=== PATIENT | female | born 1960 | race Caucasian/White ===

== ENCOUNTER → 2018-10-14 | Outpatient (CLI) | payer OTHER ==
[~2018-10-14] MED LIST: ARIP15 PO; ATOR10 PO; CYCL10; CYCL10 PO; DEXL60CA3 PO; HYDACE5; HYDMOR4 PO; HYDR1TAB94 PO; LOSHYD100 PO; METH10 PO; OLME40 PO; OXYACE5T PO; OXYC5; PROM25 PO; RABE20 PO; RANI150 PO; SERT100 PO; TRAZ50; UNK BP MED; [UNRECOGNIZED DRUG - REMARK]
== END ==
LOC: LAB EV 09:15 → LAB SHORT 09:15
DX: G89.4 Chronic pain syndrome (principal)
CPT/HCPCS: G0480

== ENCOUNTER 2019-02-08 10:29 | Day surgery (SDC) | payer BC, OTHER ==
[~2019-02-08] VITALS: Ht 162.6 cm; Wt 77.0 kg
[2019-02-08] MEDS ORDERED: MORP15ER (11:37)
--- NOTE | 2019-02-08 12:47 | NUR ---
02/08/19 1247 Nargis Flores O2 10L VIA POM MASK
--- NOTE | 2019-02-08 13:26 | NUR ---
02/08/[address] AWARE OF BP READINGS IN RECOVERY. BP CONSISTENT WITH PREOP AND OP MEASUREMENTS. PT STATES SHE GETS HEADACHES AND USUALLY TAKES HER PAIN MEDS TO ALLEVIATE THEM. PT TOLERATING LIQUIDS WELL. PT SBA TO CAR, STEADY ON FEET.
== END 2019-02-08 13:22 | disposition home or self-care (01) ==
LOC: ORSCSDS 10:29
PROVIDERS: Internal Medicine Gastroenterology
PROC: 0DBL8ZX Excision of Transverse Colon, Via Natural or Artificial Opening Endoscopic, Diagnostic (ICD-10-PCS; principal; 2019-02-08 12:15)
PROC: 0D758ZZ Dilation of Esophagus, Via Natural or Artificial Opening Endoscopic (ICD-10-PCS; principal; 2019-02-08 12:15)
DX: R13.10 Dysphagia, unspecified (principal); K22.2 Esophageal obstruction; K22.10 Ulcer of esophagus without bleeding; K44.9 Diaphragmatic hernia without obstruction or gangrene; Z12.11 Encounter for screening for malignant neoplasm of colon; D12.3 Benign neoplasm of transverse colon; K57.30 Diverticulosis of large intestine without perforation or abscess without bleeding; K64.8 Other hemorrhoids; Z86.010 Personal history of colon polyps; F17.210 Nicotine dependence, cigarettes, uncomplicated; I10 Essential (primary) hypertension; J45.909 Unspecified asthma, uncomplicated; E78.5 Hyperlipidemia, unspecified; M79.7 Fibromyalgia; F41.8 Other specified anxiety disorders; Z79.899 Other long term (current) drug therapy
CPT/HCPCS: 88305; J2704; J7120

== ENCOUNTER 2020-03-26 08:02 | Emergency (ER) | payer BC ==
[~2020-03-26] VITALS: Ht 162.6 cm; Wt 86.2 kg
[~2020-03-26 08:02] MED LIST changes: +MORP15ER
[2020-03-26] MEDS ORDERED: METOPROLOL SUCC25 MG PO (08:25)
[2020-03-26] MEDS ORDERED: HYDCHL25 PO (08:25)
[2020-03-26] MEDS ORDERED: Cymbalta20 MG PO (08:25)
[2020-03-26 09:43] LABS: BASOPHILS ABSOLUTE AUTO 0.04 K/mm3 (0.00-0.23); BASOPHILS PERCENT AUTO 0 % (0-2); EOSINOPHILS PERCENT AUTO 2 % (0-6); Hematocrit 45.6 % (33.0-51.0); Hemoglobin 14.6 g/dL (11.5-16.0); IMMATURE GRAN ABSOLUTE AUTO 0.04 K/mm3 (0.00-0.10); IMMATURE GRAN PERCENT AUTO 0 % (0-1); LYMPHOCYTES ABSOLUTE AUTO 1.97 K/mm3 (0.84-5.20); LYMPHOCYTES PERCENT AUTO 22 % (21-46); MONOCYTES ABSOLUTE AUTO 0.48 K/mm3 (0.16-1.47); MONOCYTES PERCENT AUTO 5 % (4-13); Mean Corpuscular HGB 28.7 pg (26.0-34.0); Mean Corpuscular Volume 90 fL (80-100); NEUTROPHILS ABSOLUTE AUTO 6.26 K/mm3 (1.96-9.15); NEUTROPHILS PERCENT AUTO 70 % (41-73); Platelet Count 346 K/mm3 (150-400); RDW Coefficient Variation 12.8 % (11.7-14.2); RDW Standard Deviation 42.1 fL (35.1-46.3); Red Blood Cell Count 5.09 M/mm3 (3.80-5.20); White Blood Cell Count 8.99 K/mm3 (4.00-11.30)
[2020-03-26 09:53] LABS: Alanine Aminotransfer (ALT/SGP 15 U/L (12-78); Albumin, Blood 3.3 g/dL (3.4-5.0); Albumin/Globulin Ratio 0.8 (0.8-1.8); Alk Phos 122 U/L (50-136); Anion Gap 7 mmol/L (6-16); Aspartate Aminotrans (AST/SGOT 12 U/L (12-37); Bilirubin, Total 0.2 mg/dL (0.1-1.0); Blood Urea Nitrogen 13 mg/dL (8-24); Bun/Creatinine Ratio 20.8 (12.0-20.0); CO2, Blood 28 mmol/L (21-32); Chloride, Blood 105 mmol/L (98-108); Creatinine, Blood 0.63 mg/dL (0.40-1.00); Globulin, Blood 4.2 g/dL (2.2-4.0); Glomerular Filtration Rate >60 (60-); Glucose, Blood 104 mg/dL (70-99); Potassium, Blood 3.7 mmol/L (3.5-5.5); Sodium, Blood 140 mmol/L (136-145); Total Protein, Blood 7.5 g/dL (6.4-8.2)
[2020-03-26] MEDS ORDERED: Percocet 5-3251 EACH PO ×2 (11:51→12:27)
[2020-03-26] MEDS ORDERED: IBUP400 PO ×2 (11:51→12:27)
== END 2020-03-26 12:11 | disposition home or self-care (01) ==
LOC: ER 08:02
PROVIDERS: Emergency Medicine
DX: S22.41XA Multiple fractures of ribs, right side, initial encounter for closed fracture (principal); K80.20 Calculus of gallbladder without cholecystitis without obstruction; I10 Essential (primary) hypertension; F17.210 Nicotine dependence, cigarettes, uncomplicated; Z88.8 Allergy status to other drugs, medicaments and biological substances; Z79.899 Other long term (current) drug therapy; W18.09XA Striking against other object with subsequent fall, initial encounter
CPT/HCPCS: 36415; 71260; 80053; 85025; 93005; 93010; 96374; 96375; 99284-25; J1170; J1885; J2405; Q9967

== ENCOUNTER 2021-03-24 12:04 | Emergency (ER) | payer OTHER ==
[~2021-03-24] VITALS: Ht 160 cm; Wt 90.7 kg
[~2021-03-24 12:04] MED LIST changes: +Cymbalta20 MG PO; +HYDCHL25 PO; +IBUP400 PO; +METOPROLOL SUCC25 MG PO; +Percocet 5-3251 EACH PO
[2021-03-24 14:06] LABS: Influenza A, PCR NEGATIVE (NEGATIVE); Influenza B, PCR NEGATIVE (NEGATIVE); Resp Syncytial Virus, PCR NEGATIVE (NEGATIVE); SARS-Cov-2 (COVID-19) PCR, MMC NEGATIVE (NEGATIVE)
[2021-03-24] MEDS ORDERED: PRED20 PO (14:25)
[2021-03-24] MEDS ORDERED: ALBU90OI INH (14:25)
== END 2021-03-24 14:45 | disposition home or self-care (01) ==
LOC: ER 12:04
PROVIDERS: Physician Assistant
DX: J98.01 Acute bronchospasm (principal); J98.8 Other specified respiratory disorders; Z20.822 Contact with and (suspected) exposure to COVID-19; F17.200 Nicotine dependence, unspecified, uncomplicated
CPT/HCPCS: 0241U; 99283; J7512

== ENCOUNTER 2021-05-28 11:50 | Emergency (ER) | payer OTHER ==
[~2021-05-28] VITALS: Ht 162.6 cm; Wt 86.2 kg
[~2021-05-28 11:50] MED LIST changes: +ALBU90OI INH; +PRED20 PO
[2021-05-28 13:27] LABS: Alanine Aminotransfer (ALT/SGP 25 U/L (12-78); Albumin, Blood 3.3 g/dL (3.4-5.0); Albumin/Globulin Ratio 0.8 (0.8-1.8); Alk Phos 133 U/L (50-136); Anion Gap 6 mmol/L (6-16); Aspartate Aminotrans (AST/SGOT 29 U/L (12-37); Bilirubin, Total 0.6 mg/dL (0.1-1.0); Blood Urea Nitrogen 10 mg/dL (8-24); Bun/Creatinine Ratio 17.6 (12.0-20.0); CO2, Blood 31 mmol/L (21-32); Calcium, Blood 9.1 mg/dL (8.5-10.1); Chloride, Blood 101 mmol/L (98-108); Creatinine, Blood 0.57 mg/dL (0.40-1.00); Globulin, Blood 3.9 g/dL (2.2-4.0); Glomerular Filtration Rate >60 (60-); Glucose, Blood 99 mg/dL (70-99); Sodium, Blood 138 mmol/L (136-145); Total Protein, Blood 7.2 g/dL (6.4-8.2)
[2021-05-28 14:20] LABS: BASOPHILS ABSOLUTE AUTO 0.05 K/mm3 (0.00-0.23); BASOPHILS PERCENT AUTO 1 % (0-2); EOSINOPHILS ABSOLUTE AUTO 0.19 K/mm3 (0.00-0.68); EOSINOPHILS PERCENT AUTO 2 % (0-6); Hematocrit 41.6 % (33.0-51.0); IMMATURE GRAN ABSOLUTE AUTO 0.02 K/mm3 (0.00-0.10); IMMATURE GRAN PERCENT AUTO 0 % (0-1); LYMPHOCYTES ABSOLUTE AUTO 2.33 K/mm3 (0.84-5.20); LYMPHOCYTES PERCENT AUTO 27 % (21-46); MONOCYTES ABSOLUTE AUTO 0.55 K/mm3 (0.16-1.47); MONOCYTES PERCENT AUTO 7 % (4-13); Mean Corpuscular HGB 29.8 pg (26.0-34.0); Mean Corpuscular HGB Conc 33.7 g/dL (31.5-36.5); Mean Corpuscular Volume 89 fL (80-100); Mean Platelet Volume 9.1 fL (9.1-12.4); NEUTROPHILS ABSOLUTE AUTO 5.35 K/mm3 (1.96-9.15); NEUTROPHILS PERCENT AUTO 63 % (41-73); Platelet Count 313 K/mm3 (150-400); RDW Coefficient Variation 12.1 % (11.7-14.2); RDW Standard Deviation 39.3 fL (35.1-46.3); White Blood Cell Count 8.49 K/mm3 (4.00-11.30)
== END 2021-05-28 16:00 | disposition home or self-care (01) ==
LOC: ER 11:50
PROVIDERS: Physician Assistant
DX: R07.9 Chest pain, unspecified (principal); I10 Essential (primary) hypertension; Z79.899 Other long term (current) drug therapy; F17.210 Nicotine dependence, cigarettes, uncomplicated
CPT/HCPCS: 36415; 71046; 80053; 84484; 85025; 93005; 93010

== ENCOUNTER → 2021-06-03 | Outpatient (CLI) | payer OTHER ==
[2021-06-03 14:01] LABS: BASOPHILS ABSOLUTE AUTO 0.03 K/mm3 (0.00-0.23); BASOPHILS PERCENT AUTO 0 % (0-2); EOSINOPHILS ABSOLUTE AUTO 0.08 K/mm3 (0.00-0.68); EOSINOPHILS PERCENT AUTO 1 % (0-6); Hematocrit 38.9 % (33.0-51.0); Hemoglobin 12.9 g/dL (11.5-16.0); IMMATURE GRAN ABSOLUTE AUTO 0.05 K/mm3 (0.00-0.10); IMMATURE GRAN PERCENT AUTO 0 % (0-1); LYMPHOCYTES ABSOLUTE AUTO 2.18 K/mm3 (0.84-5.20); LYMPHOCYTES PERCENT AUTO 19 % (21-46); MONOCYTES ABSOLUTE AUTO 0.81 K/mm3 (0.16-1.47); MONOCYTES PERCENT AUTO 7 % (4-13); Mean Corpuscular HGB 29.7 pg (26.0-34.0); Mean Corpuscular HGB Conc 33.2 g/dL (31.5-36.5); Mean Corpuscular Volume 90 fL (80-100); NEUTROPHILS ABSOLUTE AUTO 8.56 K/mm3 (1.96-9.15); NEUTROPHILS PERCENT AUTO 73 % (41-73); Platelet Count 383 K/mm3 (150-400); RDW Coefficient Variation 12.2 % (11.7-14.2); Red Blood Cell Count 4.34 M/mm3 (3.80-5.20); White Blood Cell Count 11.71 K/mm3 (4.00-11.30)
[2021-06-03 14:17] LABS: Alanine Aminotransfer (ALT/SGP 25 U/L (12-78); Albumin, Blood 2.9 g/dL (3.4-5.0); Albumin/Globulin Ratio 0.8 (0.8-1.8); Alk Phos 141 U/L (40-126); Anion Gap 7 mmol/L (6-16); Aspartate Aminotrans (AST/SGOT 20 U/L (12-37); Bilirubin, Total 0.3 mg/dL (0.1-1.0); Blood Urea Nitrogen 11 mg/dL (8-24); Bun/Creatinine Ratio 15.5 (12.0-20.0); CO2, Blood 31 mmol/L (21-32); Calcium, Blood 8.2 mg/dL (8.5-10.1); Chloride, Blood 100 mmol/L (98-108); Creatinine, Blood 0.71 mg/dL (0.40-1.00); Globulin, Blood 3.6 g/dL (2.2-4.0); Glomerular Filtration Rate >60 (60-); Glucose, Blood 108 mg/dL (70-99); Potassium, Blood 4.6 mmol/L (3.5-5.5); Sodium, Blood 138 mmol/L (136-145); Total Protein, Blood 6.5 g/dL (6.4-8.2)
== END ==
LOC: LAB 13:51 → LAB SHORT 13:51
PROVIDERS: Physician Assistant
DX: R07.9 Chest pain, unspecified (principal)
CPT/HCPCS: 80053; 83690; 84484; 85025

== ENCOUNTER → 2022-08-02 | Outpatient (CLI) | payer OTHER | END | disposition home or self-care (01) | LOC: PLD 15:13 → LAB 15:13 → LAB SHORT 15:13 | DX: K14.0 Glossitis (principal) | CPT/HCPCS: 88305; 88312 ==

== ENCOUNTER 2022-10-29 08:59 | Day surgery (SDC) | payer OTHER ==
[~2022-10-29] VITALS: Ht 162.6 cm; Wt 89.0 kg
[~2022-10-29 08:59] MED LIST changes: +LOSARTAN-HCTZ1 EACH PO; -LOSHYD100 PO; +OXYC10ER PO
[2022-10-29] MEDS ORDERED: AMLODIPINE BESYL5 MG PO (10:07)
[2022-10-29 11:15] VITALS: BP 134/85
== END 2022-10-29 11:10 | disposition home or self-care (01) ==
LOC: ORSCSDS 08:59
PROVIDERS: Surgery
PROC: 0DJ08ZZ Inspection of Upper Intestinal Tract, Via Natural or Artificial Opening Endoscopic (ICD-10-PCS; principal; 2022-10-29 10:30)
PROC: 0DJD8ZZ Inspection of Lower Intestinal Tract, Via Natural or Artificial Opening Endoscopic (ICD-10-PCS; principal; 2022-10-29 10:30)
DX: K20.80 Other esophagitis without bleeding (principal); Z12.11 Encounter for screening for malignant neoplasm of colon; Z86.010 Personal history of colon polyps; F41.9 Anxiety disorder, unspecified; F32.A Depression, unspecified; J45.909 Unspecified asthma, uncomplicated; I10 Essential (primary) hypertension; E78.5 Hyperlipidemia, unspecified; F17.200 Nicotine dependence, unspecified, uncomplicated; Z79.899 Other long term (current) drug therapy
CPT/HCPCS: J2704; J7120

== ENCOUNTER 2022-11-23 07:14 | Inpatient (IN) | payer OTHER ==
[~2022-11-23] VITALS: Ht 162.6 cm; Wt 91.3 kg
[~2022-11-23 07:14] MED LIST changes: +AMLODIPINE BESYL5 MG PO
[2022-11-23 09:35] LABS: BASOPHILS ABSOLUTE AUTO 0.06 K/mm3 (0.00-0.23); BASOPHILS PERCENT AUTO 0 % (0-2); EOSINOPHILS ABSOLUTE AUTO 0.01 K/mm3 (0.00-0.68); EOSINOPHILS PERCENT AUTO 0 % (0-6); Hemoglobin 9.6 g/dL (11.5-16.0); IMMATURE GRAN ABSOLUTE AUTO 0.87 K/mm3 (0.00-0.10); IMMATURE GRAN PERCENT AUTO 3 % (0-1); LYMPHOCYTES ABSOLUTE AUTO 1.62 K/mm3 (0.84-5.20); LYMPHOCYTES PERCENT AUTO 6 % (21-46); MONOCYTES ABSOLUTE AUTO 1.87 K/mm3 (0.16-1.47); MONOCYTES PERCENT AUTO 7 % (4-13); Mean Corpuscular Volume 84 fL (80-100); Mean Platelet Volume 8.7 fL (9.1-12.4); NEUTROPHILS ABSOLUTE AUTO 21.61 K/mm3 (1.96-9.15); NEUTROPHILS PERCENT AUTO 83 % (41-73); NRBC ABSOLUTE 0.02 K/mm3 (0.00-0.02); NRBC Auto 0.1 /100 WBC (0.0-0.2); Platelet Count 635 K/mm3 (150-400); RDW Coefficient Variation 15.1 % (11.7-14.2); RDW Standard Deviation 46.5 fL (35.1-46.3); Red Blood Cell Count 3.56 M/mm3 (3.80-5.20); White Blood Cell Count 26.04 K/mm3 (4.00-11.30)
[2022-11-23 09:57] LABS: Albumin, Blood 2.6 g/dL (3.4-5.0); Albumin/Globulin Ratio 0.6 (0.8-1.8); Bilirubin, Total 0.3 mg/dL (0.1-1.0); Bun/Creatinine Ratio 29.1 (12.0-20.0); Calcium, Blood 8.9 mg/dL (8.5-10.1); Creatinine, Blood 1.17 mg/dL (0.40-1.00); Globulin, Blood 4.6 g/dL (2.2-4.0); Potassium, Blood 3.7 mmol/L (3.5-5.5); Total Protein, Blood 7.2 g/dL (6.4-8.2)
[2022-11-23] MEDS ORDERED: Cyclobenzaprine5 MG PO (10:06)
[2022-11-23] MEDS ORDERED: SPIRONOLACTONE25 MG PO (10:07)
[2022-11-23] MEDS ORDERED: LOSARTAN-HCTZ1 EAC5 PO (10:07)
[2022-11-23] MEDS ORDERED: BUSPIRONE HCL5 M6 PO (10:07)
[2022-11-23] MEDS ORDERED: SIME80CH PO (10:07)
[2022-11-23] MEDS ORDERED: Ventolin/Prove6.7 GM INH (10:07)
[2022-11-23] MEDS ORDERED: PANTOPRAZOLE SO40 M2 PO (10:07)
[2022-11-23] MEDS ORDERED: MIRALAX11914 PO (10:08)
[2022-11-23 13:59] VITALS: BP 137/69
--- NOTE | 2022-11-23 17:07 | NUR ---
ER ADMIT Admitted for sepsis & pneumonia. Patient alert & oriented x4. IV placed in left forearm, IV saline infusing x2 bags. Vitals stable, afebrile. Incontinent/continent of urine. Patient observed to have constant involuntary abnormal postures & twisting movements of body, head and neck. Patient has difficulty maintaing still, reports these involuntary movements have been on-going for about a year and her PCP manages symptoms with flexeril. Plan to administred IV ABX & monitor infection.
[2022-11-23 19:48] VITALS: BP 129/61
[2022-11-24 02:40] VITALS: BP 160/88
--- NOTE | 2022-11-24 04:20 | NUR ---
SHIFT SUMMARY ALERT AND ORIENTED. MAINTAINING OXYGEN SATURATION 100% ON ROOM AIR. NEW ORDER GIVEN FOR TESSLON PEARLES FOR COUGH. EXTRA PYRAMIDAL MOVEMENTS AND COUGH INTERRUPTED PATIENT'S SLEEP FREQUENTLY. UP SBA TO BR. PLEASANT AND COOPERATIVE WITH CARE.
[2022-11-24 05:08] LABS: BASOPHILS ABSOLUTE AUTO 0.04 K/mm3 (0.00-0.23); BASOPHILS PERCENT AUTO 0 % (0-2); EOSINOPHILS ABSOLUTE AUTO 0.01 K/mm3 (0.00-0.68); EOSINOPHILS PERCENT AUTO 0 % (0-6); Hematocrit 29.2 % (33.0-51.0); Hemoglobin 9.3 g/dL (11.5-16.0); IMMATURE GRAN ABSOLUTE AUTO 0.77 K/mm3 (0.00-0.10); IMMATURE GRAN PERCENT AUTO 3 % (0-1); LYMPHOCYTES ABSOLUTE AUTO 2.54 K/mm3 (0.84-5.20); LYMPHOCYTES PERCENT AUTO 11 % (21-46); MONOCYTES ABSOLUTE AUTO 1.49 K/mm3 (0.16-1.47); MONOCYTES PERCENT AUTO 6 % (4-13); Mean Corpuscular HGB 27.2 pg (26.0-34.0); Mean Corpuscular HGB Conc 31.8 g/dL (31.5-36.5); Mean Corpuscular Volume 85 fL (80-100); NEUTROPHILS ABSOLUTE AUTO 18.32 K/mm3 (1.96-9.15); NEUTROPHILS PERCENT AUTO 79 % (41-73); Platelet Count 622 K/mm3 (150-400); RDW Coefficient Variation 15.4 % (11.7-14.2); Red Blood Cell Count 3.42 M/mm3 (3.80-5.20); White Blood Cell Count 23.17 K/mm3 (4.00-11.30)
[2022-11-24 05:32] LABS: Albumin, Blood 2.3 g/dL (3.4-5.0); Albumin/Globulin Ratio 0.5 (0.8-1.8); Bilirubin, Total 0.2 mg/dL (0.1-1.0); Bun/Creatinine Ratio 44.2 (12.0-20.0); Calcium, Blood 8.8 mg/dL (8.5-10.1); Creatinine, Blood 0.66 mg/dL (0.40-1.00); Globulin, Blood 4.3 g/dL (2.2-4.0); Potassium, Blood 3.9 mmol/L (3.5-5.5); Total Protein, Blood 6.6 g/dL (6.4-8.2)
[2022-11-24 07:29] VITALS: BP 141/78
--- NOTE | 2022-11-24 08:00 | NUR ---
Pt has constant movements of all ext, pt reports pain in left shoulder, ice pack provided, a/ox3, but not feeling well, having a hard time participating in discussion, lungs are clear in upper [place], course in lower [place], resp even and unlabored, no r/a this am, has a harsh cough, shallow resp, hrr, no edema noted, ppp +1, cap refill <3sec, vs stable, afebrile, piv site is clear and patent, btx4, abd flat soft nontender, voids without diff, skin c/w/d, maew, baldev, call light in reach. called Dr. Howell for tylenol and something for cough, recieved orders.
[2022-11-24 16:02] VITALS: BP 123/74
--- NOTE | 2022-11-24 19:14 | NUR ---
pt complained of left shoulder pain, states it's some better after tylenol, continues jerking motions, no further changes this shift. call light in reach.
[2022-11-24 22:02] VITALS: BP 125/85
[2022-11-25 03:26] VITALS: BP 153/85
--- NOTE | 2022-11-25 04:40 | NUR ---
SHIFT SUMMARY PATIENT MEDICATED X1 WITH TESSALON PEARLES FOR COUGH, TYLENOL X1 FOR PAIN. KPAD TO LEFT SHOULDER/NECK. PATIENT DID NOT SLEEP WELL AGAIN D/T TARDIVE DYSKINESIA MOVEMENTS. PATIENT VERY FRUSTRATED. UP SBA TO BR. GOOD PO INTAKE. MAINTAINING OXYGEN SATURATION AT 97% ON ROOM AIR. REPORTS BLOOD TINGED SPUTUM WHEN COUGHING. PLEASANT AND COOPERATIVE WITH CARE.
[2022-11-25 05:03] LABS: BASOPHILS ABSOLUTE AUTO 0.05 K/mm3 (0.00-0.23); BASOPHILS PERCENT AUTO 0 % (0-2); EOSINOPHILS ABSOLUTE AUTO 0.09 K/mm3 (0.00-0.68); EOSINOPHILS PERCENT AUTO 1 % (0-6); Hematocrit 30.6 % (33.0-51.0); Hemoglobin 9.7 g/dL (11.5-16.0); IMMATURE GRAN ABSOLUTE AUTO 0.81 K/mm3 (0.00-0.10); IMMATURE GRAN PERCENT AUTO 4 % (0-1); LYMPHOCYTES ABSOLUTE AUTO 2.85 K/mm3 (0.84-5.20); LYMPHOCYTES PERCENT AUTO 15 % (21-46); MONOCYTES ABSOLUTE AUTO 1.12 K/mm3 (0.16-1.47); MONOCYTES PERCENT AUTO 6 % (4-13); Mean Corpuscular HGB 26.6 pg (26.0-34.0); Mean Corpuscular HGB Conc 31.7 g/dL (31.5-36.5); Mean Corpuscular Volume 84 fL (80-100); Mean Platelet Volume 8.9 fL (9.1-12.4); NEUTROPHILS ABSOLUTE AUTO 14.11 K/mm3 (1.96-9.15); NEUTROPHILS PERCENT AUTO 74 % (41-73); NRBC ABSOLUTE 0.02 K/mm3 (0.00-0.02); NRBC Auto 0.1 /100 WBC (0.0-0.2); Platelet Count 631 K/mm3 (150-400); RDW Coefficient Variation 15.1 % (11.7-14.2); RDW Standard Deviation 46.5 fL (35.1-46.3); Red Blood Cell Count 3.64 M/mm3 (3.80-5.20); White Blood Cell Count 19.03 K/mm3 (4.00-11.30)
[2022-11-25 05:37] LABS: Bun/Creatinine Ratio 31.1 (12.0-20.0); Calcium, Blood 8.6 mg/dL (8.5-10.1); Creatinine, Blood 0.51 mg/dL (0.40-1.00); Potassium, Blood 3.8 mmol/L (3.5-5.5)
[2022-11-25 07:17] VITALS: BP 152/81
[2022-11-25 15:06] VITALS: BP 139/78
--- NOTE | 2022-11-25 16:21 | NUR ---
SHIFT SUMMARY PT AxOx4. PLEASANT AND COOPERATIVE WITH CARE. PT RECEIVED IV ABX TODAY. UA SENT FOR CULTURE WITH NEGATIVE RESULTS. PT HAS BEEN COUGHING ON AND OFF T/O THE DAY. MEDICATED PER EMAR. LS CLEAR, DIM BASES. PT REPORTS PAIN IN R SIDE RIBS AND CHRONIC PAIN TO L SHOULDER. MEDICATED PER EMAR. HEAD PAD PROVIDED. PT IS INDEPENDENT IN THE ROOM. ABLE TO MAKE NEEDS KNOWN. PT NOTED TO HAVE SPORATIC INVOLUNTARY MUSCLE MOVEMENT. CURRENT PLAN IS TO COMPLETE IV ABX AND FOLLOW UP OUTPATIENT WITH NEUROLOGY. PT IS CURRENTLY RESTING IN BED WITH CALL LIGHT IN REACH. DENIES ANY NEEDS AT THIS TIME.
[2022-11-25 20:52] VITALS: BP 154/89
--- NOTE | 2022-11-26 04:26 | NUR ---
SHIFT SUMMARY 62 YR F ADMITTED ON 11/23/22 FOR SEPSIS PNA. FULL CODE. NO ACUTE CHANGES THIS SHIFT. PT C/O PAIN IN THE LEFT SHOULDER AND CHEST AREA. MEDICATED W/ TYLENOL PER EMAR. PT IS A&O AND INDEPENDANT IN THE ROOM. SHE IS VERY PLEASANT AND COOPERATIVE WITH CARE. BED IN LOW POSITION AND CALL LIGHT IN REACH.
[2022-11-26 04:50] VITALS: BP 137/73
[2022-11-26 05:31] LABS: BASOPHILS ABSOLUTE AUTO 0.04 K/mm3 (0.00-0.23); BASOPHILS PERCENT AUTO 0 % (0-2); EOSINOPHILS ABSOLUTE AUTO 0.12 K/mm3 (0.00-0.68); EOSINOPHILS PERCENT AUTO 1 % (0-6); Hematocrit 33.2 % (33.0-51.0); Hemoglobin 10.5 g/dL (11.5-16.0); IMMATURE GRAN ABSOLUTE AUTO 0.56 K/mm3 (0.00-0.10); IMMATURE GRAN PERCENT AUTO 3 % (0-1); LYMPHOCYTES ABSOLUTE AUTO 2.35 K/mm3 (0.84-5.20); LYMPHOCYTES PERCENT AUTO 12 % (21-46); MONOCYTES ABSOLUTE AUTO 1.21 K/mm3 (0.16-1.47); MONOCYTES PERCENT AUTO 6 % (4-13); Mean Corpuscular HGB 26.7 pg (26.0-34.0); Mean Corpuscular HGB Conc 31.6 g/dL (31.5-36.5); Mean Corpuscular Volume 85 fL (80-100); NEUTROPHILS ABSOLUTE AUTO 15.95 K/mm3 (1.96-9.15); NEUTROPHILS PERCENT AUTO 79 % (41-73); NRBC ABSOLUTE 0.02 K/mm3 (0.00-0.02); NRBC Auto 0.1 /100 WBC (0.0-0.2); Platelet Count 690 K/mm3 (150-400); RDW Coefficient Variation 15.1 % (11.7-14.2); RDW Standard Deviation 46.4 fL (35.1-46.3); Red Blood Cell Count 3.93 M/mm3 (3.80-5.20); White Blood Cell Count 20.23 K/mm3 (4.00-11.30)
[2022-11-26 06:28] LABS: Albumin, Blood 2.4 g/dL (3.4-5.0); Anion Gap 5 mmol/L (6-16); Blood Urea Nitrogen 12 mg/dL (8-24); CO2, Blood 30 mmol/L (21-32); Calcium, Blood 9.5 mg/dL (8.5-10.1); Chloride, Blood 100 mmol/L (98-108); Creatinine, Blood 0.55 mg/dL (0.40-1.00); Glomerular Filtration Rate 104 (60-); Glucose, Blood 116 mg/dL (70-99); Phosphorus, Blood 4.7 mg/dL (2.5-4.9); Potassium, Blood 4.3 mmol/L (3.5-5.5); Sodium, Blood 135 mmol/L (136-145)
[2022-11-26 08:10] VITALS: BP 140/89
[2022-11-26 16:01] VITALS: BP 147/94
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
[2022-11-26 19:19] VITALS: BP 140/72
--- NOTE | 2022-11-26 20:03 | NUR ---
PT A&OX4 AND COOPERATIVE OF CARE. INDEPENDENT IN ROOM. PT EMOTIONAL AND TEARFUL AT TIMES D/T EVENTS OF HER PAST. FRANKIEROBBIN, WAS CALLED AND WAS ABLE TO SPEND SOME TIME WITH PT. VSS. WBC COUNT ELEVATED FROM PREVIOUS DAY. IV ABX CONTINUED. PT C/O CHRONIC PAIN. MEDIATED PER EMAR AND ICE PACKS PROVIDED. FAMILY AT BEDSIDE FOR SOME TIME TODAY. BED IN LOWEST POSITION AND CALL LIGHT IN REACH.
[2022-11-27 01:50] VITALS: BP 135/80
--- NOTE | 2022-11-27 04:13 | NUR ---
SHIFT SUMMARY AMBERLY WAS ALERT AND FULLY ORIENTED AT THE START OF SHIFT, AND IS INDEPENDENT IN THE ROOM. SHE IS PLEASANT AND COOPERATIVE WITH CARE. AMBERLY'S SIGNIFICANT OTHER LAYED NEXT TO THE PATIENT THROUGHOUT THE SHIFT, AND A RESULT THE PATIENT WAS CALM AND RELAXED. THEY BOTH SLEPT THROUGHOUT MOST OF THE NIGHT. THE PATIENT HAS A COUGH THAT SOUNDS DRY, BUT IS INTERMITTENTLY PRODUCTIVE. SHE HAD NO OTHER COMPLAINTS. THE PATIENT IS CURRENTLY RESTING IN BED AT THE LOWEST POSITION WITH THE CALL LIGHT IN REACH, THE PATIENTS S/O IS STILL IN THE ROOM WITH HER AT THIS TIME.
[2022-11-27 05:25] LABS: BASOPHILS ABSOLUTE AUTO 0.07 K/mm3 (0.00-0.23); BASOPHILS PERCENT AUTO 0 % (0-2); EOSINOPHILS PERCENT AUTO 1 % (0-6); Hemoglobin 11.2 g/dL (11.5-16.0); IMMATURE GRAN ABSOLUTE AUTO 0.65 K/mm3 (0.00-0.10); IMMATURE GRAN PERCENT AUTO 3 % (0-1); LYMPHOCYTES ABSOLUTE AUTO 2.92 K/mm3 (0.84-5.20); LYMPHOCYTES PERCENT AUTO 13 % (21-46); MONOCYTES ABSOLUTE AUTO 1.12 K/mm3 (0.16-1.47); MONOCYTES PERCENT AUTO 5 % (4-13); Mean Corpuscular HGB 26.6 pg (26.0-34.0); Mean Corpuscular Volume 83 fL (80-100); Mean Platelet Volume 8.7 fL (9.1-12.4); NEUTROPHILS ABSOLUTE AUTO 17.67 K/mm3 (1.96-9.15); NEUTROPHILS PERCENT AUTO 78 % (41-73); Platelet Count 720 K/mm3 (150-400); RDW Coefficient Variation 15.1 % (11.7-14.2); Red Blood Cell Count 4.21 M/mm3 (3.80-5.20); White Blood Cell Count 22.63 K/mm3 (4.00-11.30)
--- NOTE | 2022-11-27 05:26 | NUR ---
THIS SPECIAL EDUCATION PROFESSIONAL HAS REVIEWED AND AGREES WITH ALL NOTES AND ASSESSMENTS BY JAY KATZ.
[2022-11-27 05:39] LABS: Albumin, Blood 2.4 g/dL (3.4-5.0); Albumin/Globulin Ratio 0.5 (0.8-1.8); Bilirubin, Total 0.1 mg/dL (0.1-1.0); Bun/Creatinine Ratio 31.2 (12.0-20.0); Calcium, Blood 9.4 mg/dL (8.5-10.1); Creatinine, Blood 0.51 mg/dL (0.40-1.00); Globulin, Blood 4.8 g/dL (2.2-4.0); Phosphorus, Blood 4.8 mg/dL (2.5-4.9); Potassium, Blood 4.4 mmol/L (3.5-5.5); Total Protein, Blood 7.2 g/dL (6.4-8.2)
[2022-11-27 08:00] VITALS: BP 138/71
--- NOTE | 2022-11-27 12:44 | NUR ---
Patient immediately tells me that she is discouraged because her WBC is up again and that might delay her discharge. She explains how important it is to go home because of the failing health of her mom who is at home on hospice. Patient is tearful at times but shares that her boyfirend and her family know how to help her stay calm and that she misses them. We talk about the importance of staying in the hospital until her doctor clears her for a safe d/c because going home and coming right back to the hospital if the medical issues were not completely resolved would only further disrupt time at home. I provide therapeutic listening and prayer. Patient voices much appreciation for the time and care given. I will continue to remain available to patient and family.
[2022-11-27] MEDS ORDERED: BENZ100A PO (13:34)
[2022-11-27] MEDS ORDERED: DOXY100 PO (13:35)
[2022-11-27] MEDS ORDERED: GUAI600T33 PO (13:35)
[2022-11-27] MEDS ORDERED: AMOCLA875 PO (13:35)
--- NOTE | 2022-11-27 15:33 | NUR ---
PT DISCHARGED HOME. DC INSTRUCTIONS AND EDUCATION MATERIAL EXPLAINED TO PT. NO NEW QUESTIONS OR CONCERNS. PERSCRIPTIONS FAXED TO [employer] PER PT REQUEST. IV DC'D. PT ABLE TO DRESS INDEPENDENTLY. BELONGINGS GATHERED UP AND SENT HOME WITH PT. PT TAKEN BY WHEELCHAIR TO WAITING VEHICLE.
== END 2022-11-27 15:26 | disposition home or self-care (01) | DRG 871 ==
LOC: ER 07:14 → ERHOLD 11:54 → MEDS 11:54
PROVIDERS: Family Medicine; Physician Assistant; ADMIT Internal Medicine
DX: A41.9 Sepsis, unspecified organism (principal); J18.9 Pneumonia, unspecified organism; E86.0 Dehydration; K21.9 Gastro-esophageal reflux disease without esophagitis; F41.9 Anxiety disorder, unspecified; F32.A Depression, unspecified; E78.5 Hyperlipidemia, unspecified; I10 Essential (primary) hypertension; J45.909 Unspecified asthma, uncomplicated; M54.2 Cervicalgia; F17.211 Nicotine dependence, cigarettes, in remission; M62.838 Other muscle spasm; G89.29 Other chronic pain; Z90.49 Acquired absence of other specified parts of digestive tract; Z90.710 Acquired absence of both cervix and uterus; Z98.890 Other specified postprocedural states; Z79.899 Other long term (current) drug therapy
CPT/HCPCS: 36415; 71046; 80048; 80053; 80069; 83605; 83735; 84100; 84145; 85025; 87040; 87449; 93005; 93010; 94640; 94664; 94760; 96365; 99285-25; A9270; J0696; J1650; J7030; J7050

== ENCOUNTER → 2022-11-30 | Outpatient (CLI) | payer OTHER ==
[~2022-11-30] MED LIST changes: +AMOCLA875 PO; +BENZ100A PO; +BUSPIRONE HCL5 M6 PO; +Cyclobenzaprine5 MG PO; +DOXY100 PO; +GUAI600T33 PO; +LOSARTAN-HCTZ1 EAC5 PO; +MIRALAX11914 PO; +PANTOPRAZOLE SO40 M2 PO; +SIME80CH PO; +SPIRONOLACTONE25 MG PO; +Ventolin/Prove6.7 GM INH
[2022-11-30 11:16] LABS: BASOPHILS ABSOLUTE AUTO 0.05 K/mm3 (0.00-0.23); BASOPHILS PERCENT AUTO 0 % (0-2); EOSINOPHILS ABSOLUTE AUTO 0.14 K/mm3 (0.00-0.68); EOSINOPHILS PERCENT AUTO 1 % (0-6); Hematocrit 39.4 % (33.0-51.0); Hemoglobin 12.7 g/dL (11.5-16.0); IMMATURE GRAN ABSOLUTE AUTO 0.36 K/mm3 (0.00-0.10); IMMATURE GRAN PERCENT AUTO 3 % (0-1); LYMPHOCYTES ABSOLUTE AUTO 2.43 K/mm3 (0.84-5.20); LYMPHOCYTES PERCENT AUTO 18 % (21-46); MONOCYTES ABSOLUTE AUTO 0.76 K/mm3 (0.16-1.47); MONOCYTES PERCENT AUTO 6 % (4-13); Mean Corpuscular HGB 27.2 pg (26.0-34.0); Mean Corpuscular HGB Conc 32.2 g/dL (31.5-36.5); Mean Corpuscular Volume 84 fL (80-100); Mean Platelet Volume 8.9 fL (9.1-12.4); NEUTROPHILS ABSOLUTE AUTO 9.81 K/mm3 (1.96-9.15); NEUTROPHILS PERCENT AUTO 72 % (41-73); Platelet Count 708 K/mm3 (150-400); Red Blood Cell Count 4.67 M/mm3 (3.80-5.20); White Blood Cell Count 13.55 K/mm3 (4.00-11.30)
[2022-11-30 11:37] LABS: Bun/Creatinine Ratio 44.1 (12.0-20.0); Calcium, Blood 9.7 mg/dL (8.5-10.1); Creatinine, Blood 0.57 mg/dL (0.40-1.00); Potassium, Blood 4.4 mmol/L (3.5-5.5)
== END | disposition home or self-care (01) ==
LOC: LAB SHORT 10:05 → LAB 10:05
PROVIDERS: Family Medicine
DX: J18.9 Pneumonia, unspecified organism (principal); R73.01 Impaired fasting glucose
CPT/HCPCS: 80048; 83036; 85025

== ENCOUNTER 2024-03-29 15:36 | Emergency (ER) | payer OTHER ==
[~2024-03-29] VITALS: Ht 162.6 cm; Wt 95.2 kg
[2024-03-29 15:41] VITALS: BP 143/82
[2024-03-29 16:16] LABS: BASOPHILS ABSOLUTE AUTO 0.05 K/mm3 (0.00-0.23); BASOPHILS PERCENT AUTO 1 % (0-2); EOSINOPHILS ABSOLUTE AUTO 0.09 K/mm3 (0.00-0.68); EOSINOPHILS PERCENT AUTO 1 % (0-6); Hematocrit 39.9 % (33.0-51.0); Hemoglobin 12.7 g/dL (11.5-16.0); IMMATURE GRAN ABSOLUTE AUTO 0.03 K/mm3 (0.00-0.10); IMMATURE GRAN PERCENT AUTO 0 % (0-1); LYMPHOCYTES ABSOLUTE AUTO 2.19 K/mm3 (0.84-5.20); LYMPHOCYTES PERCENT AUTO 30 % (21-46); MONOCYTES ABSOLUTE AUTO 1.07 K/mm3 (0.16-1.47); MONOCYTES PERCENT AUTO 15 % (4-13); Mean Corpuscular HGB 26.5 pg (26.0-34.0); Mean Corpuscular HGB Conc 31.8 g/dL (31.5-36.5); Mean Corpuscular Volume 83 fL (80-100); Mean Platelet Volume 8.8 fL (9.1-12.4); NEUTROPHILS ABSOLUTE AUTO 3.89 K/mm3 (1.96-9.15); NEUTROPHILS PERCENT AUTO 53 % (41-73); Platelet Count 404 K/mm3 (150-400); RDW Coefficient Variation 14.5 % (11.7-14.2); RDW Standard Deviation 43.8 fL (35.1-46.3); White Blood Cell Count 7.32 K/mm3 (4.00-11.30)
[2024-03-29 16:20] LABS: CORONAVIRUS COVID-19 AG Negative (NEGATIVE); INFLUENZA A AG Negative (NEGATIVE); INFLUENZA B AG Negative (NEGATIVE)
[2024-03-29 16:38] LABS: Albumin, Blood 3.4 g/dL (3.4-5.0); Albumin/Globulin Ratio 0.8 (0.8-1.8); Bilirubin, Total 0.4 mg/dL (0.1-1.0); Bun/Creatinine Ratio 21.9 (12.0-20.0); Calcium, Blood 9.2 mg/dL (8.5-10.1); Creatinine, Blood 0.73 mg/dL (0.40-1.00); Globulin, Blood 4.5 g/dL (2.2-4.0); Potassium, Blood 4.2 mmol/L (3.5-5.5); Total Protein, Blood 7.9 g/dL (6.4-8.2)
[2024-03-29] MEDS ORDERED: BENZ100A PO (18:28)
[2024-03-29] MEDS ORDERED: Prednisone20 MG PO (18:28)
== END 2024-03-29 18:49 | disposition home or self-care (01) ==
LOC: ER 15:36
PROVIDERS: Emergency Medicine
DX: R05.9 Cough, unspecified (principal); I10 Essential (primary) hypertension; J45.909 Unspecified asthma, uncomplicated; F17.210 Nicotine dependence, cigarettes, uncomplicated; Z79.899 Other long term (current) drug therapy
CPT/HCPCS: 71046; 80053; 84484; 85025; 87428-QW; 93005; 93010; 99284-25